=== PATIENT | female | born 1960 | race Caucasian/White ===

== ENCOUNTER 2019-09-27 17:35 | Emergency (ER) | payer MEDICARE ==
[2019-09-27] MEDS ORDERED: BABY ASPIRIN 81 MG CHEW PO ONE (17:37)
[2019-09-27] MEDS ORDERED: Zofran 4 MG/2 ML VIAL IV ONE (17:37)
[2019-09-27] MEDS ORDERED: Zofran 4 MG/2 ML VIAL ONE (17:47)
[2019-09-27] MEDS ORDERED: BABY ASPIRIN 81 MG CHEW ONE (17:48)
[2019-09-27 18:14] LABS: Absolute Neutrophil Ct (ANC) 7.46 (1.4-6.9); BASOPHIL % 0.2 % (0.0-0.4); Basophil (Absolute #) 0.02 (0-0.4); Eosinophil % 0.3 % (0.00-5.0); Eosinophil (Absolute #) 0.03 (0-0.5); Hematocrit 41.3 % (35-47); Hemoglobin 13.9 gm/dl (12.0-16.0); Lymphocyte (Absolute #) 1.45 (1.0-4.6); Lymphocytes % 15.3 % (24.0-44.0); Mean Cell Volume 99.3 fl (78-100); Mean Corpuscular Hemoglobin 33.4 pg (26-32); Mean Corpuscular Hgb Concent. 33.7 g/dl (32-36); Mean Platelet Volume 10.5 fl (7.5-11.0); Monocytes % 5.3 % (0.0-12.0); Neutrophil % 78.9 % (36.0-66.0); Platelet Count 181 K/mm3 (150-450); Red Blood Count 4.16 M/mm3 (4.1-5.4); White Blood Count 9.5 K/mm3 (4.0-10.5)
[2019-09-27 18:22] LABS: ALBUMIN 4.2 g/dL (3.5-5.0); ANION GAP 16.6 MEQ/L (5-15); BILIRUBIN,TOTAL 0.4 mg/dL (0.2-1.3); Calcium 9.9 mg/dL (8.4-10.2); Creatinine 1 1.3 mg/dL (0.52-1.04); Total Protein 7.3 g/dL (6.3-8.2)
--- NOTE | 2019-09-27 18:30 | ERPHSYRPT ---
- History of Present Illness Source: patient Exam Limitations: no limitations Patient Subjective Stated Complaint: Numbness Triage Nursing Assessment: Patient brought into ED via EMS and transferred to bed with assist of 3. Patient's skin pink, warm and dry. Patient complains of numbness from the top of her right side of head to her toes. Patient was seen last night in [facility] for same complaint and states she was not happy with her dx. Patient NIH negative. Patient denies pain or discomfort. Lungs diminished throughout. Hx Tetanus, Diphtheria Vaccination/Date Given: No Hx Influenza Vaccination/Date Given: No Hx Pneumococcal Vaccination/Date Given: No Immunizations Up to Date: Yes <LUIS MCMANUS - Last Filed: 09/27/19 18:35> <JANY WILLS - Last Filed: 09/27/19 22:10> - History of Present Illness Time Seen by Provider: 09/27/19 17:37 Physician History: Patient is here for right-sided paresthesias. Patient states her symptoms have been present since yesterday. We were able to obtain the discharge summary from [facility] where she was seen yesterday. Patient states that she has right-sided paresthesias, numbness. She has no other focal neurological deficits. No chest pain or shortness of breath. No nausea, vomiting, headache. Patient states the symptoms started after she woke up from a nap. She has been able to ambulate without difficulty for the past 24 hours after her discharge. She stated that she felt her paresthesias slightly returned this afternoon, therefore arrives via EMS. Location: Right side of body Quality: Paresthesias Radiation: none Severity: moderate Duration: 24 hours Timing: gradual, after nap Modifying factors/associated signs and symptoms: none tried (LUIS MCMANUS) Allergies/Adverse Reactions: erythromycin base [Erythromycin Base] Allergy (Unknown, Verified 09/27/19 19:10) Home Medications: Metformin HCl 500 mg [Glucophage 500 MG] 1,000 mg PO BID 03/08/14 [History ] Insulin NPH/Reg 70/30 [Novolin 70/30] 0 unit SQ BID 07/25/14 [History] Losartan Potassium 1 tab PO DAILY 07/25/14 [History] Spironolactone [Aldactone] 50 mg PO BID 07/25/14 [History] Alprazolam 0.5 mg [xanAX 0.5 MG] 0.5 mg PO Q8H PRN PRN 09/27/19 [History] Atorvastatin Calcium 10 mg PO DAILY 09/27/19 [History] Empagliflozin [Jardiance] 10 mg PO DAILY 09/27/19 [History] Famotidine 20 mg [Pepcid 20 MG] 40 mg PO DAILY 09/27/19 [History] Travel Risk - International Travel Have you traveled outside of the country in past 3 weeks: No Have you or anyone close to you been diagnosed with or: No Do your reside in a community with a known COVID-19 case?: Yes If Yes where:: [facility] - Coronavirus Screening Has patient experienced Coronavirus symptoms: No <LUIS MCMANUS - Last Filed: 09/27/19 18:35> - Review of Systems Constitutional: No Fever, No Chills Eyes: No Symptoms Ears, Nose, & Throat: No Symptoms Respiratory: No Cough, No Dyspnea Cardiac: No Chest Pain, No Edema, No Syncope Abdominal/Gastrointestinal: No Abdominal Pain, No Nausea, No Vomiting, No Diarrhea Genitourinary Symptoms: No Dysuria Musculoskeletal: No Back Pain, No Neck Pain Skin: No Rash Neurological: Parasthesia, No Dizziness, No Focal Weakness, No Sensory Changes Psychological: No Symptoms Endocrine: No Symptoms All Other Systems: Reviewed and Negative <LUIS MCMANUS - Last Filed: 09/27/19 18:35> - Past Medical History Pertinent Past Medical History: Yes Neurological History: Migraines ENT History: No Pertinent History Cardiac History: Other Respiratory History: No Pertinent History Endocrine Medical History: Diabetes Type II Musculoskeletal History: Osteoarthritis GI Medical History: No Pertinent History History: No Pertinent History Psycho-Social History: No Pertinent History Female Reproductive Disorders: No Pertinent History Other Medical History: Pt is unsure if she has neuropathy. 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." - Past Surgical History Past Surgical History: Yes Neuro Surgical History: No Pertinent History Cardiac: No Pertinent History Respiratory: No Pertinent History Gastrointestinal: Cholecystectomy Genitourinary: No Pertinent History Musculoskeletal: Orthopedic Surgery Female Surgical History: No Pertinent History Other Surgical History: knee, ankle - Social History Smoking Status: Current every day smoker How long have you smoked: since teen Exposure to second hand smoke: No Drug Use: none Patient Lives Alone: No <LUIS MCMANUS - Last Filed: 09/27/19 18:35> - Physical Exam General Appearance: no apparent distress, alert Eye Exam: PERRL/EOMI, eyes nml inspection Ears, Nose, Throat Exam: normal ENT inspection, TMs normal, pharynx normal, moist mucous membranes Neck Exam: normal inspection, non-tender, supple, full range of motion Respiratory Exam: normal breath sounds, lungs clear, No respiratory distress Cardiovascular Exam: regular rate/rhythm, normal heart sounds, normal peripheral pulses Gastrointestinal/Abdomen Exam: soft, normal bowel sounds, No tenderness, No mass Back Exam: normal inspection, normal range of motion, No CVA tenderness, No vertebral tenderness Extremity Exam: normal inspection, normal range of motion, pelvis stable Neurologic Exam: alert, oriented x 3, cooperative, normal mood/affect, nml cerebellar function, nml station & gait, sensation nml, No motor deficits Skin Exam: normal color, warm, dry, No rash Lymphatic Exam: No adenopathy SpO2 Interpretation: normal SpO2: 100 <LUIS MCMANUS - Last Filed: 09/27/19 18:35> <JANY WILLS - Last Filed: 09/27/19 22:10> - Nursing Vital Signs Nursing Vital Signs: Initial Vital Signs Temperature 98.1 F 09/27/19 17:40 Pulse Rate 101 H 09/27/19 17:40 Respiratory Rate 18 09/27/19 17:40 Blood Pressure 91/64 09/27/19 17:40 O2 Sat by Pulse Oximetry 100 09/27/19 17:40 Pain Scale Pain Intensity 0 - Physical Exam Comments: 09/27/19 18:33 Motor: There is no pronator drift of out-stretched arms. Muscle bulk and tone are normal. Strength is full bilaterally. Reflexes: Reflexes are 2+ and symmetric at the biceps, triceps, knees, and ankles. Plantar responses are flexor. Sensory: Light touch sense are intact in bilateral upper and lower extremities. There is no sign of neglect. Coordination: Rapid alternating movements are intact. There is no dysmetria on [id number] and [id number]. There are no abnormal or extraneous movements. Romberg is absent. Gait/Stance: Posture is normal. Gait is steady with normal steps, base, arm swing, and turning. Heel and toe walking are normal. Tandem gait is normal. No obvious deformity, sensation intact, 2+ capillary refill, 2 point tactile discrimination intact. 5 out of 5 strength. Full range of motion without pain. Compartments are soft, nontender. Overlying skin shows no tenting, bruising, ecchymosis. (LUIS MCMANUS) Ordered Tests: Active Orders 24 hr Category Date Time Status ACCUCHECK [Accucheck] STAT Care 09/27/19 19:24 Active Tutorial Laboratory Supervisor STAT Care 09/27/19 17:37 Active EKG-ER Only STAT Care 09/27/19 17:37 Active IV Insertion STAT Care 09/27/19 17:37 Active CHEST 2 VIEWS (PA AND LAT) Stat Exams 09/27/19 17:37 Taken HEAD WITHOUT CONTRAST [CT] Stat Exams 09/27/19 18:19 Taken BMP Stat Lab 09/27/19 20:45 Completed CBC W DIFF Stat Lab 09/27/19 17:45 Completed CMP Stat Lab 09/27/19 17:45 Completed CULTURE,URINE Stat Lab 09/27/19 19:42 Received NT PRO BNP Stat Lab 09/27/19 17:45 Completed TROPONIN Q3H Lab 09/27/19 17:45 Completed TROPONIN Q3H Lab 09/27/19 20:45 Completed TROPONIN Q3H Lab 09/27/19 23:45 Ordered TROPONIN Q3H Lab 09/28/19 02:45 Ordered TROPONIN Q3H Lab 09/28/19 05:45 Ordered UA W/RFX UR CULTURE Stat Lab 09/27/19 19:42 Completed Respiratory Therapy Assessment DAILY RT 09/27/19 18:59 Active Medication Summary Generic Name Dose Route Start Last Admin Trade Name Freq PRN Reason Stop Dose Admin Sodium Chloride 500 mls @ 500 mls/hr 09/27/19 21:23 Sodium Chloride 0.9% 500 Ml IV 09/27/19 22:22 .Q1H ONE Discontinued Medications Generic Name Dose Route Start Last Admin Trade Name Freq PRN Reason Stop Dose Admin Albuterol Sulfate 2.5 mg 09/27/19 18:36 09/27/19 18:53 Proventil 2.5 Mg/3 Ml Neb IH 09/27/19 18:37 2.5 mg STAT ONE Administration Albuterol Sulfate Confirm 09/27/19 18:44 Proventil 2.5 Mg/3 Ml Neb Administered 09/27/19 18:45 Dose 2.5 mg IH .STK-MED ONE Alprazolam 0.5 mg 09/27/19 19:25 09/27/19 19:28 Xanax 0.5 Mg PO 09/27/19 19:26 0.5 mg STAT ONE Administration Alprazolam Confirm 09/27/19 19:27 Xanax 0.5 Mg Administered 09/27/19 19:28 Dose 0.5 mg .ROUTE .STK-MED ONE Aspirin 324 mg 09/27/19 17:37 09/27/19 17:49 Baby Aspirin 81 Mg Chew PO 09/27/19 17:38 324 mg STAT ONE Administration Aspirin Confirm 09/27/19 17:48 Baby Aspirin 81 Mg Chew Administered 09/27/19 17:49 Dose 324 mg .ROUTE .STK-MED ONE Calcium Gluconate 1,000 mg 09/27/19 18:36 09/27/19 18:57 Calcium Gluconate 10% 1000 Mg IV 09/27/19 18:37 1,000 mg STAT ONE Administration Calcium Gluconate Confirm 09/27/19 18:42 Calcium Gluconate 10% 1000 Mg Administered 09/27/19 18:43 Dose 1,000 mg IV .STK-MED ONE Dextrose 50 ml 09/27/19 18:36 D50w 50 Ml Abboject IV 09/27/19 18:37 STAT ONE Sodium Chloride 1,000 mls @ 999 mls/hr 09/27/19 18:31 09/27/19 19:58 Sodium Chloride 0.9% 1000 Ml IV 09/27/19 19:31 Infused .Q1H1M STA Infusion Sodium Chloride Confirm 09/27/19 18:44 Sodium Chloride 0.9% 1000 Ml Administered 09/27/19 18:45 Dose 1,000 mls @ ud .ROUTE .STK-MED ONE Ceftriaxone Sodium/Dextrose 1 g in 50 mls @ 100 mls/hr 09/27/19 21:05 21:34 Rocephin 1 Gm-D5w 50 Ml Bag IV 09/27/19 21:34 100 mls/hr STAT STA 100 mls/hr Administration Sodium Chloride Confirm 09/27/19 21:29 Sodium Chloride 0.9% 500 Ml Administered 09/27/19 21:30 Dose 500 mls @ ud IV .STK-MED ONE Ceftriaxone Sodium/Dextrose Confirm 09/27/19 21:30 Rocephin 1 Gm-D5w 50 Ml Bag Administered 09/27/19 21:31 Dose 1 g in 50 mls @ ud IV .STK-MED ONE Insulin Human Regular 10 unit 09/27/19 18:36 09/27/19 18:57 Humulin R IV 09/27/19 18:37 10 unit STAT ONE Administration Insulin Human Regular Confirm 09/27/19 18:43 Humulin R Administered 09/27/19 18:44 Dose 10 unit .ROUTE .STK-MED ONE Ondansetron HCl 4 mg 09/27/19 17:37 09/27/19 17:49 Zofran 4 Mg/2 Ml Vial IV 09/27/19 17:38 4 mg STAT ONE Administration Ondansetron HCl Confirm 09/27/19 17:47 Zofran 4 Mg/2 Ml Vial Administered 09/27/19 17:48 Dose 4 mg .ROUTE .STK-MED ONE Sodium Bicarbonate 50 meq 09/27/19 18:36 09/27/19 18:57 Sodium Bicarbonate 50 Meq/50 Ml Abboject IV 09/27/19 18:37 50 meq STAT ONE Administration Sodium Bicarbonate Confirm 09/27/19 18:44 Sodium Bicarbonate 50 Meq/50 Ml Abboject Administered 09/27/19 18:45 Dose 50 meq IV .STK-MED ONE Lab/Rad Data: Laboratory Result Diagrams 09/27/19 17:45 09/27/19 20:45 Laboratory Results 09/27/19 09/27/19 09/27/19 Range/Units 20:45 20:45 19:42 WBC (4.0-10.5) K/mm3 RBC (4.1-5.4) M/mm3 Hgb (12.0-16.0) gm/dl Hct (35-47) % MCV (78-100) fl MCH (26-32) pg MCHC (32-36) g/dl RDW (11.5-14.0) % Plt Count (150-450) K/mm3 MPV (7.5-11.0) fl Gran % (36.0-66.0) % Eos # (Auto) (0-0.5) Absolute Lymphs (auto) (1.0-4.6) Absolute Monos (auto) (0.0-1.3) Lymphocytes % (24.0-44.0) % Monocytes % (0.0-12.0) % Eosinophils % (0.00-5.0) % Basophils % (0.0-0.4) % Absolute Granulocytes (1.4-6.9) Basophils # (0-0.4) Sodium 138 (137-145) mmol/L Potassium 5.0 (3.5-5.1) mmol/L Chloride 105 (98-107) mmol/L Carbon Dioxide 26 (22-30) mmol/L Anion Gap 11.5 (5-15) MEQ/L BUN 39 H (7-17) mg/dL Creatinine 1.22 H (0.52-1.04) mg/dL Estimated GFR 47.8 ML/MIN Glucose 126 H (74-106) mg/dL Calcium 10.0 (8.4-10.2) mg/dL Total Bilirubin (0.2-1.3) mg/dL AST (14-36) U/L ALT (0-35) U/L Alkaline Phosphatase (38-126) U/L Troponin I 0.027 (0.000-0.034) ng/mL NT-Pro-B Natriuret Pep (0-900) pg/mL Serum Total Protein (6.3-8.2) g/dL Albumin (3.5-5.0) g/dL Urine Color YELLOW (YELLOW) Urine Appearance SLIGHTLY CLOUDY (CLEAR) Urine pH 6.0 (5-6) Ur Specific [place] 1.024 (1.005-1.025) Urine Protein NEGATIVE (Negative) Urine Ketones NEGATIVE (NEGATIVE) Urine Blood NEGATIVE (0-5) Joey/ul Urine Nitrite NEGATIVE (NEGATIVE) Urine Bilirubin NEGATIVE (NEGATIVE) Urine Urobilinogen NEGATIVE (0-1) mg/dL Ur Leukocyte Esterase TRACE (NEGATIVE) Urine WBC (Auto) 26-50 (0-5) /HPF Urine RBC (Auto) 3-5 (0-2) /HPF U Epithel Cells (Auto) RARE (FEW) /HPF Urine Bacteria (Auto) NONE (NEGATIVE) /HPF Urine Mucus (Auto) SLIGHT (NEGATIVE) /HPF Urine Yeast (Budding) Rare (NEGATIVE) /HPF Urine Culture Reflexed YES (NO) Urine Glucose >=500 (NEGATIVE) mg/dL 09/27/19 09/27/19 09/27/19 Range/Units 17:45 17:45 17:45 WBC 9.5 (4.0-10.5) K/mm3 RBC 4.16 (4.1-5.4) M/mm3 Hgb 13.9 (12.0-16.0) gm/dl Hct 41.3 (35-47) % MCV 99.3 (78-100) fl MCH 33.4 H (26-32) pg MCHC 33.7 (32-36) g/dl RDW 14.0 (11.5-14.0) % Plt Count 181 (150-450) K/mm3 MPV 10.5 (7.5-11.0) fl Gran % 78.9 H (36.0-66.0) % Eos # (Auto) 0.03 (0-0.5) Absolute Lymphs (auto) 1.45 (1.0-4.6) Absolute Monos (auto) 0.50 (0.0-1.3) Lymphocytes % 15.3 L (24.0-44.0) % Monocytes % 5.3 (0.0-12.0) % Eosinophils % 0.3 (0.00-5.0) % Basophils % 0.2 (0.0-0.4) % Absolute Granulocytes 7.46 H (1.4-6.9) Basophils # 0.02 (0-0.4) Sodium 136 L (137-145) mmol/L Potassium 6.0 H* (3.5-5.1) mmol/L Chloride 101 (98-107) mmol/L Carbon Dioxide 24 (22-30) mmol/L Anion Gap 16.6 H (5-15) MEQ/L BUN 39 H (7-17) mg/dL Creatinine 1.30 H (0.52-1.04) mg/dL Estimated GFR 44.4 ML/MIN Glucose 364 H (74-106) mg/dL Calcium 9.9 (8.4-10.2) mg/dL Total Bilirubin 0.40 (0.2-1.3) mg/dL AST 22 (14-36) U/L ALT 16 (0-35) U/L Alkaline Phosphatase 77 (38-126) U/L Troponin I 0.030 (0.000-0.034) ng/mL NT-Pro-B Natriuret Pep 522 (0-900) pg/mL Serum Total Protein 7.3 (6.3-8.2) g/dL Albumin 4.2 (3.5-5.0) g/dL Urine Color (YELLOW) Urine Appearance (CLEAR) Urine pH (5-6) Ur Specific [place] (1.005-1.025) Urine Protein (Negative) Urine Ketones (NEGATIVE) Urine Blood (0-5) Joey/ul Urine Nitrite (NEGATIVE) Urine Bilirubin (NEGATIVE) Urine Urobilinogen (0-1) mg/dL Ur Leukocyte Esterase (NEGATIVE) Urine WBC (Auto) (0-5) /HPF Urine RBC (Auto) (0-2) /HPF U Epithel Cells (Auto) (FEW) /HPF Urine Bacteria (Auto) (NEGATIVE) /HPF Urine Mucus (Auto) (NEGATIVE) /HPF Urine Yeast (Budding) (NEGATIVE) /HPF Urine Culture Reflexed (NO) Urine Glucose (NEGATIVE) mg/dL - Progress Progress: improved <LUIS MCMANUS - Last Filed: 09/27/19 18:35> - Progress Counseled pt/family regarding: lab results, diagnosis, need for follow-up, rad results <JANY WILLS - Last Filed: 09/27/19 22:10> - Progress Progress Note: 09/27/19 18:33 Differential diagnosis includes stroke, head bleed, STEMI, infection, pneumonia , UTI, COVID-19. - We'll obtain basic labs, fluids, EKG, troponin, chest x-ray - I feel comfortable with one time negative troponin given symptoms have improved and started greater then 6 hours ago. - EKG shows no ST changes - my read. See full read below. - O2 saturations consistently greater than 95%. - CXR shows no pneumonia, pneumothorax - my read -Head CT Initial potassium did come back at 6.0. However, we will redraw a BMP at this point in time to make sure there is no hemolysis. EKG does show peaked T waves. We will treat as hyperkalemia at this point in time. 09/27/19 1900 Transfer of care to Dr. Wills. He will follow-up on head CT, repeat BMP, and reexam. (LUIS MCMANUS) 09/27/19 22:00 Patient has been reviewed during her stay here in the emergency room since at least 7 PM. I went in to review the results of her work-up. She immediately stated that I need to admit her or send her home. Patient was very angry. Reviewed the results of her work-up. Patient does not appear to have admissible diagnosis. She now has a normal blood sugar, normal potassium, mild to moderate urinary tract infection and she has been rehydrated. Her CAT scan of her head is negative. Her vital signs have improved since her admission. Our plan is to discharge her home. (JANY WILLS) <LUIS MCMANUS. - Last Filed: 09/27/19 18:35> - Departure Departure Disposition: Home Critical Care Time: No <JANY WILLS - Last Filed: 09/27/19 22:10> - Departure Clinical Impression: Hyperkalemia, Urinary tract infection, Hyperglycemia Condition: Stable Referrals: MAMIE MEJAI [Primary Care Provider] - Additional Instructions: Take all your medications as prescribed. Follow-up with your primary care physician on Monday to make arrangements for follow-up appointment. Prescriptions: Ciprofloxacin [Cipro 500 MG] 500 mg PO BID #14 tablet
[2019-09-27] MEDS ORDERED: Sodium Chloride 0.9% 1000 ML 1,000 ML IV STA (18:31)
[2019-09-27] MEDS ORDERED: PROVENTIL 2.5 MG/3 ML NEB IH ONE ×2 (18:36→18:44)
[2019-09-27] MEDS ORDERED: Calcium Gluconate 10% 1000 MG IV ONE ×2 (18:36→18:42)
[2019-09-27] MEDS ORDERED: SODIUM BICARBONATE 50 MEQ/50 ML ABBOJECT IV ONE ×2 (18:36→18:44)
[2019-09-27] MEDS ORDERED: HUMULIN R IV ONE (18:36)
[2019-09-27] MEDS ORDERED: D50W 50 ml Abboject IV ONE (18:36)
[2019-09-27] MEDS ORDERED: HUMULIN R ONE (18:43)
[2019-09-27] MEDS ORDERED: Sodium Chloride 0.9% 1000 ML 1,000 ML ONE (18:44)
[2019-09-27] MEDS ORDERED: xanAX 0.5 MG PO ONE (19:25)
[2019-09-27] MEDS ORDERED: xanAX 0.5 MG ONE (19:27)
[2019-09-27 20:56] LABS: Appearance SLIGHTLY CLOUDY (CLEAR); Bilirubin NEGATIVE (NEGATIVE); Blood NEGATIVE Ery/ul (0-5); Epithelial Cells RARE /HPF (FEW); Glucose >=500 mg/dL (NEGATIVE); Ketones NEGATIVE (NEGATIVE); Leukocyte Esterase TRACE (NEGATIVE); Mucus SLIGHT /HPF (NEGATIVE); Nitrite NEGATIVE (NEGATIVE); Protein,Urine Dip NEGATIVE (Negative); Specific Gravity 1.024 (1.005-1.025); Urobilinogen NEGATIVE mg/dL (0-1); WBC 26-50 /HPF (0-5)
[2019-09-27 20:57] LABS: Budding Yeast Rare /HPF (NEGATIVE)
[2019-09-27 21:05] LABS: ANION GAP 11.5 MEQ/L (5-15); Creatinine 1 1.22 mg/dL (0.52-1.04)
[2019-09-27] MEDS ORDERED: ROCEPHIN 1 Gm-D5w 50 ml Bag** 1 G/50 ML IVPB IV STA (21:05)
[2019-09-27 21:06] VITALS: O2SAT 98
[2019-09-27] MEDS ORDERED: Sodium Chloride 0.9% 500 ML 500 ML IV ONE ×2 (21:23→21:29)
[2019-09-27] MEDS ORDERED: ROCEPHIN 1 Gm-D5w 50 ml Bag** 1 G/50 ML IVPB IV ONE (21:30)
[2019-09-27 22:20] VITALS: BP 82/62; PULSE 101
--- NOTE | 2019-09-28 08:24 | XRAY ---
Indication: Right-sided weakness. Multiple contiguous axial images obtained through the head without contrast. Comparison: None. There is age-appropriate global atrophy, mild periventricular degenerative micro-ischemia bilaterally, and left internal capsule remote lacunar infarct. No acute intracranial hemorrhage, abnormal extra-axial fluid collection, or mass effect. Fourth ventricle is midline without hydrocephalus. Bony calvarium intact. Visualized paranasal sinuses and mastoid air cells are clear. 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
--- NOTE | 2019-09-28 08:30 | XRAY ---
Indication: Right-sided weakness. Pneumonia. Comparison: January 06, 2014. PA/lateral chest remains clear. Heart and mediastinal structures within normal limits. Bony thorax intact again with mild osteopenia and degenerative changes. Impression: Nonacute chest with chronic features.
== END 2019-09-27 22:59 | disposition home or self-care (01) ==
LOC: ED 17:35
DX: E87.5 Hyperkalemia (principal); N39.0 Urinary tract infection, site not specified; E11.65 Type 2 diabetes mellitus with hyperglycemia; Z79.4 Long term (current) use of insulin
CPT/HCPCS: 36000; 36415; 70450; 71046; 80048; 80053; 81001; 82962; 83880; 84484; 85025; 87086; 93005; 93041; 94640; 96360; 96361; 96365; 96374; 96375; 99285; J0610; J0696; J1815; J2405; J7609; A9270-GY

== ENCOUNTER 2023-04-10 14:59 | Emergency (ER) | payer MEDICARE ==
[2023-04-10 15:21] VITALS: TEMP 98.9
[2023-04-10] MEDS ORDERED: solu-MEDROL 125 MG, Sterile H2O 10 ml 2 ML IV ONE ×2 (15:48)
[2023-04-10] MEDS ORDERED: DUONEB 0.5-3 MG/3 ml Neb IH ONE ×2 (15:48→16:31)
[2023-04-10] MEDS ORDERED: Sodium Chloride 0.9% 1000 ML 1,000 ML IV SCH (16:00)
[2023-04-10 16:26] LABS: Absolute Neutrophil Ct (ANC) 6.45 x10^3/uL (1.4-6.9); BASOPHIL % 0.5 % (0.0-0.4); Basophil (Absolute #) 0.04 x10^3/uL (0-0.4); Eosinophil (Absolute #) 0 x10^3/uL (0-0.5); Hematocrit 45.2 % (35-47); Hemoglobin 14.9 g/dL (12.0-16.0); IMMATURE GRAN # 0.06 x10^3u/L (0.00-0.03); IMMATURE GRAN % 0.8 % (0.00-0.4); Lymphocyte (Absolute #) 0.38 x10^3/uL (1.0-4.6); Lymphocytes % 5.2 % (24.0-44.0); Mean Platelet Volume 10.6 fL (7.5-11.0); Monocyte (Absolute #) 0.41 x10^3/uL (0.0-1.3); Monocytes % 5.6 % (0.0-12.0); Neutrophil % 87.9 % (36.0-66.0); Platelet Count 160 x10^3/uL (150-450); Red Blood Count 4.81 x10^6/uL (4.1-5.4); Red Cell Distribution Width 12.5 % (11.5-14.0); White Blood Count 7.3 x10^3/uL (4.0-10.5)
--- NOTE | 2023-04-10 16:34 | XRAY ---
Indication: Cough. Short of breath. Comparison: September 27, 2019 Portable chest demonstrates new pulmonary edema. No consolidation/large effusion. Heart is now borderline enlarged with interval cardiac valve replacement surgery and new left dual-lead pacemaker. Bony thorax intact again with osteopenia and mild degenerative changes. Impression: New borderline cardiomegaly and pulmonary edema. Rule out mild or early cardiac decompensation/CHF. Superimposed pneumonia not completely excluded.
[2023-04-10 16:40] LABS: INR 1.18 (0.8-3.0); PROTIME 12.7 SECONDS (9.4-12.5)
[2023-04-10 16:42] LABS: ANION GAP 17.4 MEQ/L (5-15); BILIRUBIN,TOTAL 0.5 mg/dL (0.2-1.3); Calcium 9.2 mg/dL (8.4-10.2); Creatinine 1 1.09 mg/dL (0.52-1.04); EST GLOMERULAR FILTRATION RATE 56.7 ML/MIN; Total Protein 7.7 g/dL (6.3-8.2)
[2023-04-10] MEDS ORDERED: Sodium Chloride 0.9% 1000 ML 1,000 ML ONE (16:43)
[2023-04-10] MEDS ORDERED: solu-MEDROL ONE (16:43)
[2023-04-10] MEDS ORDERED: Sterile H2O 10 ml IJ ONE (16:44)
[2023-04-10 17:01] LABS: INFLUENZA B NEGATIVE (NEGATIVE); RESPIRATORY SYNCTIAL VIRUS NEGATIVE (NEGATIVE); SARS-CoV-2 Xpert Express NEGATIVE (NEGATIVE)
[2023-04-10 17:03] LABS: INFLUENZA A POSITIVE (NEGATIVE)
[2023-04-10 17:28] VITALS: RESP 17
[2023-04-10 17:43] LABS: Slide Review 1 YES
[2023-04-10] MEDS ORDERED: Lasix 40 MG/4 ML IV ONE (17:43)
--- NOTE | 2023-04-10 18:02 | ERPHSYRPT ---
- History of Present Illness Time Seen by Provider: 04/10/23 15:15 Source: patient Exam Limitations: no limitations Patient Subjective Stated Complaint: Pt reports she has been feeling weak with a headache for 2-3 days. Denies nausea/vomiting/diarrhea/pain. Pt was placed on 3L by EMS due to O2 sat being 89% on room air upon arrival. Triage Nursing Assessment: Pt alert and oriented x3. Respirations easy/nonlabored. Skin w/p/d. Transferred from EMS cot to ED cot by EMS and ER staff. Pt refused to take off shirt and get into hospital gown. Physician History: Patient is a 62-year-old white female who presents with a complaint of weakness, heavy breathing, elevated blood pressure, coughing and occasionally producing some sputum. She denies any nausea vomiting or diarrhea she also has no home O2 but was put on 3 L nasal cannula by EMS because her O2 sats were in the 80s. Cough Quality/Degree: productive cough Allergies/Adverse Reactions: erythromycin base [Erythromycin Base] Allergy (Unknown, Verified 09/27/19 19:10) Home Medications: Metformin HCl 500 mg [Glucophage 500 MG] 1,000 mg PO BID 03/08/14 [History] Insulin NPH/Reg 70/30 [Novolin 70/30] 0 unit SQ BID 07/25/14 [History] Losartan Potassium 1 tab PO DAILY 07/25/14 [History] Spironolactone [Aldactone] 50 mg PO BID 07/25/14 [History] ALPRAZolam 0.5 MG [xanAX 0.5 MG] 0.5 mg PO Q8H PRN PRN 09/27/19 [History] Atorvastatin Calcium 10 mg PO DAILY 09/27/19 [History] Empagliflozin [Jardiance] 10 mg PO DAILY 09/27/19 [History] Famotidine 20 mg [Pepcid 20 MG] 40 mg PO DAILY 09/27/19 [History] Hx Tetanus, Diphtheria Vaccination/Date Given: (unknown) Hx Influenza Vaccination/Date Given: No Hx Pneumococcal Vaccination/Date Given: No Travel Risk - International Travel Have you traveled outside of the country in past 3 weeks: No - Coronavirus Screening Are you exhibiting any of the following symptoms?: Yes Symptoms: Cough: New Onset, Headaches/Body Aches/Fatigue Close contact with a COVID-19 positive Pt in past 14-21 Days: No - Vaccine Status Have you recieved a Covid-19 vaccination: Yes [employer]: Unknown - Vaccination Dates Dates if Unknown: ? - Review of Systems Constitutional: Lethargy, Malaise, Weakness, No Fever, No Chills Eyes: No Symptoms Ears, Nose, & Throat: No Symptoms Respiratory: Cough, Dyspnea Cardiac: Chest Pain, No Edema, No Syncope Abdominal/Gastrointestinal: No Abdominal Pain, No Nausea, No Vomiting, No Diarrhea Genitourinary Symptoms: No Dysuria Musculoskeletal: No Back Pain, No Neck Pain Skin: No Rash Neurological: No Dizziness, No Focal Weakness, No Sensory Changes Psychological: No Symptoms Endocrine: No Symptoms All Other Systems: Reviewed and Negative - Past Medical History Pertinent Past Medical History: Yes Neurological History: Migraines ENT History: No Pertinent History Cardiac History: Other Respiratory History: No Pertinent History Endocrine Medical History: Diabetes Type II Musculoskeletal History: Osteoarthritis GI Medical History: No Pertinent History History: No Pertinent History Psycho-Social History: No Pertinent History Female Reproductive Disorders: No Pertinent History Other Medical History: Pt is unsure if she has neuropathy. 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." - Past Surgical History Past Surgical History: Yes Neuro Surgical History: No Pertinent History Cardiac: No Pertinent History Respiratory: No Pertinent History Gastrointestinal: Cholecystectomy Genitourinary: No Pertinent History Musculoskeletal: Orthopedic Surgery Female Surgical History: No Pertinent History Other Surgical History: knee, ankle - Social History Smoking Status: Current every day smoker How long have you smoked: since teen Exposure to second hand smoke: Yes Drug Use: none Patient Lives Alone: No - Nursing Vital Signs Nursing Vital Signs: Initial Vital Signs Temperature 98.9 F 04/10/23 15:01 Pulse Rate 110 H 04/10/23 15:01 Respiratory Rate 26 H 04/10/23 15:01 Blood Pressure 142/105 04/10/23 15:01 O2 Sat by Pulse Oximetry 92 L 04/10/23 15:01 Pain Scale Pain Intensity 0 - Physical Exam General Appearance: moderate distress, alert Eye Exam: PERRL/EOMI, eyes nml inspection Ears, Nose, Throat Exam: normal ENT inspection, TMs normal, pharynx normal, moist mucous membranes Neck Exam: normal inspection, non-tender, supple, full range of motion Respiratory Exam: respiratory distress (Mild), diminished breath sounds, crackles/rales, rhonchi, wheezing Cardiovascular Exam: regular rate/rhythm, normal heart sounds Gastrointestinal/Abdomen Exam: soft, No tenderness Pelvic Exam: not done Rectal Exam: deferred Back Exam: normal inspection, No CVA tenderness, No vertebral tenderness Extremity Exam: normal inspection, normal range of motion Neurologic Exam: alert, oriented x 3, cooperative, normal mood/affect, sensation nml, No motor deficits Skin Exam: normal color, warm, dry, No rash Lymphatic Exam: No adenopathy SpO2: 91 - Course Nursing assessment & vital signs reviewed: Yes EKG Interpreted by Me: RATE (98), Other (Paced rhythm no other interpretation available) - Radiology Exams Chest X-ray Interpretation: Reviewed by me, Other (CHF pulmonary edema) Ordered Tests: Active Orders 24 hr Category Date Time Status EKG-ER Only STAT Care 04/10/23 15:48 Active CHEST 1 VIEW (PORTABLE) Stat Exams 04/10/23 15:49 Completed BLOOD CULTURE Stat Lab 04/10/23 15:48 Received BNPII [NT PRO BNPII] Stat Lab 04/10/23 16:10 Received CBC W DIFF Stat Lab 04/10/23 16:10 Completed CMP Stat Lab 04/10/23 16:20 Completed Lactic Acid Stat Lab 04/10/23 16:31 Completed PROCALCITONIN Stat Lab 04/10/23 16:10 Received PROTIME WITH INR Stat Lab 04/10/23 16:10 Completed TROPONIN Q4H Lab 04/10/23 16:10 Completed TROPONIN Q4H Lab 04/10/23 20:00 Ordered UA W/RFX UR CULTURE Stat Lab 04/10/23 17:23 Received Respiratory Therapy Assessment DAILY RT 04/10/23 16:39 Completed Medication Summary Generic Name Dose Route Start Last Admin Trade Name Freq PRN Reason Stop Dose Admin Sodium Chloride 1,000 mls @ 100 mls/hr 04/10/23 16:00 04/10/23 16:59 Sodium Chloride 0.9% 1000 Ml IV 05/10/23 15:59 100 mls/hr .Q10H JA Administration Discontinued Medications Generic Name Dose Route Start Last Admin Trade Name Freq PRN Reason Stop Dose Admin Albuterol/Ipratropium 3 ml 04/10/23 15:48 04/10/23 16:37 Ipratropium/Albuterol Sulfate 3 Ml Ampul.Neb IH 04/10/23 15:49 3 ml STAT ONE Administration Albuterol/Ipratropium Confirm 04/10/23 16:31 Ipratropium/Albuterol Sulfate 3 Ml Ampul.Neb Administered 04/10/23 16:32 Dose 3 ml IH .STK-MED ONE Methylprednisolone Sodium 0 mg 04/10/23 15:48 04/10/23 17:01 Succinate 125 mg/ Sterile IV 04/10/23 15:49 125 mg Water 2 ml STAT ONE Administration Furosemide 40 mg 04/10/23 17:43 Furosemide 40 Mg/4 Ml Vial IV 04/10/23 17:44 STAT ONE Methylprednisolone Sodium Succinate Confirm 04/10/23 16:43 Methylprednis Sod Succ 125 Mg/2 Ml Vial Administered 04/10/23 16:44 Dose 125 mg .ROUTE .STK-MED ONE Sterile Water Confirm 04/10/23 16:44 Water For Injection,Sterile 10 Ml Vial Administered 04/10/23 16:45 Dose 10 ml IJ .STK-MED ONE Lab/Rad Data: Laboratory Result Diagrams 04/10/23 16:10 04/10/23 16:20 Laboratory Results 04/10/23 04/10/23 04/10/23 Range/Units 16:31 16:20 16:15 WBC (4.0-10.5) x10^3/uL RBC (4.1-5.4) x10^6/uL Hgb (12.0-16.0) g/dL Hct (35-47) % MCV (78-100) fL MCH (26-32) pg MCHC (32-36) g/dL RDW (11.5-14.0) % Plt Count (150-450) x10^3/uL MPV (7.5-11.0) fL Gran % (36.0-66.0) % Immature Gran % (Auto) (0.00-0.4) % Nucleat RBC Rel Count (0.00-0.1) % Eos # (Auto) (0-0.5) x10^3/uL Immature Gran # (Auto) (0.00-0.03) x10^3u/L Absolute Lymphs (auto) (1.0-4.6) x10^3/uL Absolute Monos (auto) (0.0-1.3) x10^3/uL Absolute Nucleated RBC (0.00-0.01) x10^3u/L Lymphocytes % (24.0-44.0) % Monocytes % (0.0-12.0) % Eosinophils % (0.00-5.0) % Basophils % (0.0-0.4) % Absolute Granulocytes (1.4-6.9) x10^3/uL Basophils # (0-0.4) x10^3/uL PT (9.4-12.5) SECONDS INR (0.8-3.0) Sodium 134 L (137-145) mmol/L Potassium 4.0 (3.5-5.1) mmol/L Chloride 101 (98-107) mmol/L Carbon Dioxide 19 L (22-30) mmol/L Anion Gap 17.4 H (5-15) MEQ/L BUN 20 H (7-17) mg/dL Creatinine 1.09 H (0.52-1.04) mg/dL Estimated GFR 56.7 ML/MIN Glucose 291 H (74-106) mg/dL Lactic Acid 1.9 (0.4-2.0) Calcium 9.2 (8.4-10.2) mg/dL Total Bilirubin 0.50 (0.2-1.3) mg/dL AST 79 H (14-36) U/L ALT 54 H (0-35) U/L Alkaline Phosphatase 175 H (38-126) U/L Troponin I (0.000-0.034) ng/mL Serum Total Protein 7.7 (6.3-8.2) g/dL Albumin 4.0 (3.5-5.0) g/dL Influenza Type A Ag POSITIVE (NEGATIVE) Influenza Type B Ag NEGATIVE (NEGATIVE) RSV (PCR) NEGATIVE (NEGATIVE) SARS-CoV-2 (PCR) NEGATIVE (NEGATIVE) Slides for Path Review 04/10/23 04/10/23 04/10/23 Range/Units 16:10 16:10 16:10 WBC 7.3 (4.0-10.5) x10^3/uL RBC 4.81 (4.1-5.4) x10^6/uL Hgb 14.9 (12.0-16.0) g/dL Hct 45.2 (35-47) % MCV 94.0 (78-100) fL MCH 31.0 (26-32) pg MCHC 33.0 (32-36) g/dL RDW 12.5 (11.5-14.0) % Plt Count 160 (150-450) x10^3/uL MPV 10.6 (7.5-11.0) fL Gran % 87.9 H (36.0-66.0) % Immature Gran % (Auto) 0.8 H (0.00-0.4) % Nucleat RBC Rel Count 0.0 (0.00-0.1) % Eos # (Auto) 0 (0-0.5) x10^3/uL Immature Gran # (Auto) 0.06 H (0.00-0.03) x10^3u/L Absolute Lymphs (auto) 0.38 L (1.0-4.6) x10^3/uL Absolute Monos (auto) 0.41 (0.0-1.3) x10^3/uL Absolute Nucleated RBC 0.00 (0.00-0.01) x10^3u/L Lymphocytes % 5.2 L (24.0-44.0) % Monocytes % 5.6 (0.0-12.0) % Eosinophils % 0.0 (0.00-5.0) % Basophils % 0.5 (0.0-0.4) % Absolute Granulocytes 6.45 (1.4-6.9) x10^3/uL Basophils # 0.04 (0-0.4) x10^3/uL PT 12.7 H (9.4-12.5) SECONDS INR 1.18 (0.8-3.0) Sodium (137-145) mmol/L Potassium (3.5-5.1) mmol/L Chloride (98-107) mmol/L Carbon Dioxide (22-30) mmol/L Anion Gap (5-15) MEQ/L BUN (7-17) mg/dL Creatinine (0.52-1.04) mg/dL Estimated GFR ML/MIN Glucose (74-106) mg/dL Lactic Acid (0.4-2.0) Calcium (8.4-10.2) mg/dL Total Bilirubin (0.2-1.3) mg/dL AST (14-36) U/L ALT (0-35) U/L Alkaline Phosphatase (38-126) U/L Troponin I 0.207 H* (0.000-0.034) ng/mL Serum Total Protein (6.3-8.2) g/dL Albumin (3.5-5.0) g/dL Influenza Type A Ag (NEGATIVE) Influenza Type B Ag (NEGATIVE) RSV (PCR) (NEGATIVE) SARS-CoV-2 (PCR) (NEGATIVE) Slides for Path Review YES - Progress Progress: unchanged Air Movement: fair Blood Culture(s) Obtained: Yes Antibiotics given: No Medical Desision Making - Discussion of managment Care discussed with:: on-call "doc" (Dr. Gerber at [facility] ER) Reviewed:: Test results Agreed on:: Treatment plan Will see patient: in ED - Diagnostic Testing Diagnostic test were ordered, analyzed, and reviewed by me: Yes Radiological Interpretation: Reviewed by me - Risk of complications The pt has a mod risk of morbidity or mortality based on: Need for prescription drug management - Departure Departure Disposition: Transfer (Patient will be transferred to [facility] at [place]. Dr. Gerber excepting) Clinical Impression: Influenza A, CHF (congestive heart failure), Hypoxia, Elevated troponin Condition: Fair Critical Care Time: Yes Critical Care Time(excluding separately billable procedures): Critical 30-74 mins (35) Referrals: DOCTOR,NO FAMILY [Primary Care Provider] - Follow up/PCP as directed Instructions: Heart Failure
[2023-04-10 18:08] LABS: Appearance Cloudy (Clear); Bilirubin Negative (Negative); Blood Large (Negative); Epithelial Cells Few /HPF (None Seen); Glucose, Urine >=1000 mg/dL (Negative); Ketones Trace (Negative); Leukocyte Esterase Negative (Negative); Nitrite Negative (Negative); Ph 5.5 (4.6-8.0); Protein,Urine Dip >=1000 (Negative); RBC 0-2 /HPF (0-5); Specific Gravity 1.025 (1.005-1.030)
[2023-04-10 18:09] LABS: ADD URINE CULTURE? YES (NO); Bacteria Moderate /HPF (None Seen); Budding Yeast Few /HPF (None Seen); Hyaline Casts 0-2 /LPF (0-2)
[2023-04-10 18:24] VITALS: BP 134/79; PULSE 97; O2SAT 93
[2023-04-10] MEDS ORDERED: Lasix 40 MG/4 ML ONE (18:40)
== END 2023-04-10 18:48 | disposition short-term general hospital (02) ==
LOC: ED 14:59
DX: J10.1 Influenza due to other identified influenza virus with other respiratory manifestations (principal); R09.02 Hypoxemia; I50.9 Heart failure, unspecified; R77.8 Other specified abnormalities of plasma proteins; R53.1 Weakness; R05.9 Cough, unspecified; E11.9 Type 2 diabetes mellitus without complications; Z79.84 Long term (current) use of oral hypoglycemic drugs; Z79.4 Long term (current) use of insulin; Z79.899 Other long term (current) drug therapy; Z72.0 Tobacco use; Z20.828 Contact with and (suspected) exposure to other viral communicable diseases
CPT/HCPCS: 0241U; 36415; 71045; 80053; 81001; 83605; 83880; 84145; 84484; 85025; 85610; 87040; 87086; 93005; 94640; 96360; 96374; 96375; 99285; 99291; J1940; J2930; A9270-GY